=== PATIENT | female | born 1940 | race Caucasian/White ===

== ENCOUNTER 2025-04-30 20:20 | Emergency (ER) | payer BC, MEDICARE ==
[~2025-04-30] VITALS: Ht 152.4 cm; Wt 67.7 kg
[2025-04-30] MEDS ORDERED: XARE15TA PO (20:31)
[2025-04-30 22:18] LABS: PLATELET COUNT, AUTOMATED 214 10^3/uL (150-450)
[2025-04-30 22:31] LABS: INR 3.32
[2025-04-30] MEDS ORDERED: LISI10TA24 PO (22:34)
[2025-04-30] MEDS ORDERED: CITA20TA6 PO (22:34)
[2025-04-30] MEDS ORDERED: FURO20TA2 PO (22:34)
[2025-04-30] MEDS ORDERED: FLUTISP NARES (22:34)
[2025-04-30] MEDS ORDERED: ATOR40TA75 PO (22:34)
[2025-04-30] MEDS ORDERED: TRAM50TA2 PO (22:34)
[2025-04-30] MEDS ORDERED: DRON400T PO (22:34)
[2025-04-30] MEDS ORDERED: SLOW142T5 PO (22:34)
[2025-04-30] MEDS ORDERED: NITR0.4S14 SL (22:34)
[2025-04-30] MEDS ORDERED: CHOL25TA2 PO (22:35)
[2025-04-30] MEDS ORDERED: CITR500T PO (22:35)
[2025-04-30] MEDS ORDERED: HOME MED LIST COMPLETE! XX SCH (22:35)
[2025-04-30 22:40] LABS: KETONE, URINE AUTO RFX NEGATIVE (NEGATIVE); NITRITE, URINE AUTO RFX NEGATIVE (NEGATIVE); RBC, URINE AUTO RFX 22 /HPF (0-3); SQUAM EPITHELIAL CELL UR AURFX 2 /HPF (0-6); WBC, URINE AUTO RFX 4 /HPF (0-3)
[2025-04-30] MEDS ORDERED: CITA10TA7 PO (22:40)
[2025-04-30 22:41] LABS: LEUKOCYTE ESTERASE UR AUTO RFX 2+ (NEGATIVE)
[2025-04-30 22:44] LABS: ETHYL ALCOHOL (ETHANOL) < 0.003 % (0.000-0.010)
[2025-04-30 22:46] LABS: SALICYLATE LEVEL < 3.0 MG/DL (<30)
[2025-04-30 22:47] LABS: ALT/SGPT 14 U/L (7.0-40); AST/SGOT 24 U/L (<34); CALCIUM LEVEL 9.0 MG/DL (8.3-10.6); CARBON DIOXIDE LEVEL 25 MMOL/L (20-31); CHLORIDE LEVEL 100 MMOL/L (98-107); CREATININE FOR GFR 1.04 MG/DL (0.55-1.30); GLOMERULAR FILTRATION RATE 53.3 (>32); POTASSIUM SERUM 3.4 MMOL/L (3.5-5.1); SODIUM LEVEL 138 MMOL/L (136-145)
[2025-04-30 23:05] LABS: AMPHETAMINES LEVEL URINE NEGATIVE (NEGATIVE); BARBITURATES URINE NEGATIVE (NEGATIVE); BENZODIAZEPINES URINE NEGATIVE (NEGATIVE); CANNABINOIDS URINE NEGATIVE (NEGATIVE); COCAINE METABOLITE URINE NEGATIVE (NEGATIVE); METHADONE URINE NEGATIVE (NEGATIVE); OPIATES URINE NEGATIVE (NEGATIVE); PHENCYCLIDINE URINE NEGATIVE (NEGATIVE)
[2025-05-01] MEDS: ALPRAZolam 0.25 MG TAB PO ONE ×2 (01:40→17:51)
[2025-05-01] MEDS: DRONEDARONE 400 MG TAB PO SCH (08:00)
[2025-05-01] MEDS: ATORVASTATIN 20 MG TAB PO ONE (08:12)
[2025-05-01] MEDS: traMADol 50 MG TAB PO SCH (08:15)
[2025-05-01] MEDS ORDERED: traMADol 50 MG TAB PO SCH (09:00)
[2025-05-01 17:50] VITALS: BP 140/74; TEMP 98.5; O2SAT 99
[2025-05-01] MEDS ORDERED: RIVAROXABAN 15MG TAB PO SCH ×2 (18:00→21:00)
== END 2025-05-01 17:57 | disposition short-term general hospital (02) ==
LOC: M ED 20:20
DX: F32.A Depression, unspecified (principal); I44.7 Left bundle-branch block, unspecified; I45.81 Long QT syndrome; I48.91 Unspecified atrial fibrillation; E78.5 Hyperlipidemia, unspecified; F41.9 Anxiety disorder, unspecified; Z88.8 Allergy status to other drugs, medicaments and biological substances